=== PATIENT | male | born 1965 | race Caucasian/White ===

== ENCOUNTER 2021-07-27 11:27 | Day surgery (SDC) | payer BC ==
[2021-07-27] VITALS (9 sets, daily range): BP systolic 120–143; BP diastolic 70–90
[~2021-07-27] VITALS: Ht 177.8 cm; Wt 86.8 kg
[2021-07-27] MEDS ORDERED: LORazepam 0.5 MG tablet PO PRN ×2 (11:50→12:36)
[2021-07-27] MEDS ORDERED: diphenhydrAMINE 25mg capsule PO PRN (11:50)
[2021-07-27] MEDS ORDERED: normal saline 1,000 ML IV SCH (11:50)
[2021-07-27] MEDS ORDERED: Testosterone SQ (11:51)
[2021-07-27] MEDS ORDERED: LIDOcaine/PRILOcaine 5gm cream TP ONE (12:40)
[2021-07-27] MEDS ORDERED: nitroGLYCERIN-Tridil 50MG/D5W 250 ML IV ONE (13:07)
[2021-07-27] MEDS ORDERED: heparin 1,000unit/ml 10ml vial 10 ML ONE (13:08)
[2021-07-27] MEDS ORDERED: verapamil 2.5 mg/ml inj IV ONE (13:08)
[2021-07-27] MEDS ORDERED: LIDOcaine 1% (10mg/ml)w/preservative inj. 20ml MDV ONE (13:08)
[2021-07-27] MEDS ORDERED: fentaNYL/PF 50MCG/1 ML 2ML syringe ONE (13:08)
[2021-07-27] MEDS ORDERED: midazolam 1 mg/ML 2ml injection ONE (13:08)
[2021-07-27] MEDS ORDERED: iohexol 350MG/ML 100ml bottle IV ONE (13:09)
== END 2021-07-27 17:00 | disposition home or self-care (01) ==
LOC: SSTAY O 11:27
PROVIDERS: ATTEND Internal Medicine Interventional Cardiology
DX: R94.39 Abnormal result of other cardiovascular function study (principal); I20.0 Unstable angina; I10 Essential (primary) hypertension; I48.91 Unspecified atrial fibrillation; Z80.0 Family history of malignant neoplasm of digestive organs; Z80.1 Family history of malignant neoplasm of trachea, bronchus and lung; Z72.89 Other problems related to lifestyle; Z98.890 Other specified postprocedural states
CPT/HCPCS: 93005; 93458; 99152; 99153; C1769; C1894; J1644; J2250; J3010; J3490; J7030; Q0163; Q9967; A4620; A6258